=== PATIENT | male | born 1975 | race Two or more races ===

== ENCOUNTER 2023-06-23 08:41 | Emergency (ER) | payer OTHER ==
[~2023-06-23] VITALS: Ht 182.9 cm; Wt 70.3 kg
[2023-06-23] MEDS ORDERED: BIKTARVY 30-121 EACH PO (08:50)
[2023-06-23] MEDS ORDERED: FLOVENT HFA10.6 GM (08:50)
[2023-06-23] MEDS ORDERED: 0.9 % SODIUM CHLORIDE 1,000 ML IV STA (09:21)
[2023-06-23] MEDS ORDERED: ONDANSETRON HCL 2 MG/ML VIAL IV STA (09:24)
[2023-06-23] MEDS ORDERED: MEPERIDINE HCL/PF 25 MG/ML VIAL IV STA (09:25)
[2023-06-23 10:06] LABS: HEMATOCRIT 39.4 % (39.0-48.0); HEMOGLOBIN 13.6 g/dL (13-16.00); MEAN CELL VOLUME 97.3 fL (80.0-100.00); MEAN CORPUSCULAR HEMOGLOBIN 33.5 pg (27.00-32.0); MEAN CORPUSCULAR HGB CONC 34.4 g/dl (32.0-36.0); PLATELET COUNT 202 K/uL (150-450); RED BLOOD COUNT 4.05 M/uL (4.00-6.00); RED CELL DISTRIBUTION WIDTH 12.7 % (11.5-14.5)
[2023-06-23 10:51] LABS: ALBUMIN 3.5 gm/dL (3.4-5.0); BILIRUBIN TOTAL 0.73 mg/dL (0.3-1.2); BILIRUBIN,CONJUGATED 0.18 mg/dL (0.0-0.2); BILIRUBIN,UNCONJUGATED 0.55 mg/dL (0.0-0.6); CALCIUM 8.8 mg/dL (8.5-10.1); CREATININE SERUM 0.96 mg/dL (0.70-1.30); GFR 83.25; POTASSIUM 4.08 mEq/L (3.5-5.1); TOTAL PROTEIN 7.2 gm/dL (6.4-8.2)
[2023-06-23 12:36] LABS: PH,URINE 6.5 (5.0-8.0); URINE APPEARANCE Clear; URINE BILIRRUBIN Negative (NEGATIVE); URINE BLOOD Negative; URINE COLOR Yellow; URINE GLUCOSE Negative (NEGATIVE); URINE LEUKOCYTE Negative; URINE NITRATE Negative; URINE PROTEIN Negative (NEGATIVE); URINE UROBILINOGEN 0.2 E.U./dl
[2023-06-23 12:40] LABS: URINE BACTERIA 6.2 uL (0.0-1933)
[2023-06-23 13:03] LABS: URINE RBC 0.7 uL (0.0-20.8); URINE WBC 0.3 uL (0.0-23.2)
== END 2023-06-23 15:07 | disposition home or self-care (01) ==
LOC: ER 08:42
PROVIDERS: General Practice
DX: R10.84 Generalized abdominal pain (principal)